=== PATIENT | male | born 1950 | race American Indian/Alaskan Native ===

== ENCOUNTER 2018-09-05 03:29 | Inpatient (IN) | payer MEDICARE ==
--- NOTE | 2018-09-05 03:43 | Emergency Department Report ---
ED Chest Pain HPI - General Stated Complaint: CHEST PAIN Time Seen by Provider: 09/05/18 03:34 - History of Present Illness Initial Comments: 67-year-old male, presents to the ED via EMS with complaint of chest pain and dizziness. 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 Patient reports associated left-sided chest pain, nonradiating. Patient states pain felt like tearing, sharp pain. Reports shortness of breath, diaphoresis. PCP: Dr Prabhjot Santiago MD Complaint: chest pain -: This morning Onset: during exertion Pain Location: left chest Pain Radiation: none Severity: moderate Quality: sharp, other (tearing) Consistency: now resolved Improves With: nothing Worsens With: nothing re: diaphoresis, dyspnea. denies: nausea, vomting - Related Data Home Medications Medication Instructions Recorded Confirmed Last Taken Unobtainable 09/05/18 09/05/18 Unknown Allergies Allergy/AdvReac Type Severity Reaction Status Date / Time No Known Allergies Allergy Unverified 09/05/18 04:18 Heart Score - HEART Score History: Moderately suspicious EKG: Non-specific Age: > 65 Risk factors: 1-2 risk factors Troponin: < normal limit HEART Score: 5 ED Review of Systems ROS: Stated complaint: CHEST PAIN Other details as noted in HPI Comment: All other systems reviewed and negative Constitutional: denies: chills, fever Respiratory: shortness of breath. denies: cough Cardiovascular: chest pain. denies: palpitations Gastrointestinal: denies: vomiting ED Past Medical Hx - Medications Home Medications: Home Medications Medication Instructions Recorded Confirmed Last Taken Type Unobtainable 09/05/18 09/05/18 Unknown History ED Physical Exam - General General appearance: alert, in no apparent distress - Head Head exam: Present: atraumatic, normocephalic - Eye Eye exam: Present: normal appearance - ENT ENT exam: Present: mucous membranes moist - Neck Neck exam: Present: normal inspection - Respiratory Respiratory exam: Present: normal lung sounds bilaterally. Absent: respiratory distress - Cardiovascular Cardiovascular Exam: Present: tachycardia, irregular rhythm - GI/Abdominal GI/Abdominal exam: Present: soft. Absent: distended, tenderness - Extremities Exam Extremities exam: Absent: pedal edema, calf tenderness - Neurological Exam Neurological exam: Present: alert, oriented X3, CN II-XII intact. Absent: motor sensory deficit - Psychiatric Psychiatric exam: Present: normal affect, normal mood - Skin Skin exam: Present: warm, dry, intact, normal color ED Course Vital Signs 09/05/18 09/05/18 09/05/18 04:04 04:30 04:44 Temperature 98.2 F Pulse Rate 125 H 77 82 Respiratory 18 18 15 Rate Blood Pressure 94/63 Blood Pressure 101/65 [Left] O2 Sat by Pulse 100 100 100 Oximetry 09/05/18 09/05/18 09/05/18 04:45 05:00 05:16 Temperature Pulse Rate 83 79 78 Respiratory 16 14 15 Rate Blood Pressure 101/65 101/65 109/71 Blood Pressure [Left] O2 Sat by Pulse 100 100 100 Oximetry 09/05/18 09/05/18 09/05/18 05:30 05:38 06:19 Temperature Pulse Rate 76 68 Respiratory 18 18 18 Rate Blood Pressure Blood Pressure 109/71 111/67 [Left] O2 Sat by Pulse 100 100 100 Oximetry 09/05/18 09/05/18 09/05/18 06:28 07:01 08:00 Temperature Pulse Rate 71 69 63 Respiratory 18 11 L 16 Rate Blood Pressure 109/71 117/63 111/65 Blood Pressure [Left] O2 Sat by Pulse 100 100 100 Oximetry 09/05/18 09/05/18 09/05/18 09:00 10:00 11:00 Temperature Pulse Rate 62 66 61 Respiratory 14 14 15 Rate Blood Pressure 109/72 99/67 103/64 Blood Pressure [Left] O2 Sat by Pulse 100 100 100 Oximetry 09/05/18 09/05/18 09/05/18 12:01 12:11 12:21 Temperature Pulse Rate 64 65 67 Respiratory 18 12 13 Rate Blood Pressure 130/85 130/85 130/85 Blood Pressure [Left] O2 Sat by Pulse 100 100 100 Oximetry 09/05/18 12:31 Temperature Pulse Rate 69 Respiratory 13 Rate Blood Pressure 130/85 Blood Pressure [Left] O2 Sat by Pulse 100 Oximetry - Reevaluation(s) Reevaluation #1: 09/05/18 05:08 Due to pt's characterization of pain as "tearing" in nature, will obtain CTA Chest. Creatnine 1.7, will administer IV fluids and get the CTA. ED Medical Decision Making - Lab Data Result diagrams: 09/05/18 03:47 09/05/18 03:47 - EKG Data -: EKG Interpreted by Me EKG shows normal: axis, intervals, QRS complexes Rate: tachycardia (rate 126) - EKG Data Interpretation: other (T wave inversions diffusely) - Radiology Data Radiology results: report reviewed, image reviewed - Differential Diagnosis afib w/ RVR, ACS, aortic dissection, PE Critical care attestation.: If time is entered above; I have spent that time in minutes in the direct care of this critically ill patient, excluding procedure time. ED Disposition Clinical Impression: Chest pain, Paroxysmal atrial fibrillation Disposition: OP ADMIT IP TO THIS HOSP Is pt being admited?: Yes Condition: Stable
--- NOTE | 2018-09-05 04:08 | XRay Report ---
PROCEDURE: XR CHEST 1V AP TECHNIQUE: A portable upright view of the chest was obtained. HISTORY: chest pain COMPARISONS: None FINDINGS: The heart size and mediastinum appear normal. The thoracic aorta is mildly tortuous. The lungs are cl ear. Pleural fluid is not seen. The skeletal structures do not show any acute changes. IMPRESSION: No acute cardiopulmonary process.. This document is electronically signed by Prabhjot Bertrand MD., September 05 2018 04:05:34 AM ET
[2018-09-05 04:14] LABS: Basophils % (Auto) 0.7 % (0.0-1.8); Eosinophils # (Auto) 0.2 K/mm3 (0.0-0.4); Eosinophils % (Auto) 2.9 % (0.0-4.3); Hematocrit 43.1 % (35.5-45.6); Hemoglobin 14.4 gm/dl (11.8-15.2); Lymphocytes # (Auto) 0.9 K/mm3 (1.2-5.4); Lymphocytes % (Auto) 16.4 % (13.4-35.0); Mean Corpuscular HGB Conc 33 % (32-34); Mean Corpuscular Volume 82 fl (84-94); Monocytes # (Auto) 0.5 K/mm3 (0.0-0.8); Monocytes % (Auto) 9.1 % (0.0-7.3); Red Blood Count 5.27 M/mm3 (3.65-5.03); Red Cell Distribution Width 16.2 % (13.2-15.2)
[2018-09-05 04:28] LABS: INR 0.89 (0.87-1.13); Partial Thromboplastin Time 28.4 Sec. (24.2-36.6)
[2018-09-05 04:34] LABS: BUN/Creatinine Ratio 15; Blood Urea Nitrogen 25 mg/dL (9-20); Calcium 8.6 mg/dL (8.4-10.2); Hemolysis Index 19
[2018-09-05] MEDS ORDERED: NACL 0.9% 1000 ML 1,000 ML IV ONE (05:08)
[2018-09-05 05:09] LABS: Platelet Count 166 K/mm3 (140-440)
--- NOTE | 2018-09-05 05:58 | Cat Scan Report ---
PROCEDURE: CT ANGIO CHEST TECHNIQUE: A CT angiogram was obtained of the chest following the intravenous injection of iodinated contrast. Rotational, sagittal, and coronal MIP reconstructions were reviewed. HISTORY: chest pain COMPARISONS: None FINDINGS: The heart size is normal. Pericardial fluid is not seen. The thoracic aorta is normal in configuratio n. There is no evidence of pulmonary embolus or congestion. The lungs are negative infiltrates or eff usions. In the upper abdomen there is a 2.8 cm peripherally calcified stone in the neck of the gallbl adder. There are no secondary signs of acute cholecystitis otherwise. The adrenal glands appear mine l. The skeletal structures are well-maintained. At the thoracic inlet the thyroid gland appears mine l. IMPRESSION: No evidence of pulmonary vessels, aortic dissection, or vascular congestion. No acute process in the chest. 2.8 cm peripherally calcified stone in the neck of the gallbladder. No secondary signs of acute john cystitis otherwise.. This document is electronically signed by Prabhjot Bertrand MD., September 05 2018 05:56:54 AM ET
[2018-09-05] MEDS ORDERED: ASPIRIN PO ONE (06:01)
--- NOTE | 2018-09-05 13:45 | Consultation ---
History of Present Illness Consult date: 09/05/18 Requesting physician: MONICO SMITH Consult reason: atrial fibrillation History of present illness: The pt is a 67 YO male with a past medical history of HTN, DM, HLP, tobacco use. He presented with complaints of palpitations, chest pain, dizziness, diaphoresis and near syncope. 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 He was noted to be in AFib with RVR following arrival. Pt denies any prior cardiac issues, including CAD, AMI, HF or arrhythmia. Pt has since converted back to SR and remains in SR on evaluation. He has no current complaints. Past History Past Medical History: diabetes, hypertension, hyperlipidemia Social history: smoking Family history: CAD (mother) Medications and Allergies Allergies Allergy/AdvReac Type Severity Reaction Status Date / Time No Known Allergies Allergy Unverified 09/05/18 04:18 Home Medications Medication Instructions Recorded Confirmed Last Taken Type Unobtainable 09/05/18 09/05/18 Unknown History Review of Systems Constitutional: no weight loss, no weight gain, no fever, no chills Ears, nose, mouth and throat: no ear pain, no nose pain, no sinus pressure, no sinus pain Cardiovascular: chest pain, palpitations, rapid/irregular heart beat, lightheade dness, high blood pressure, no orthopnea, no edema, no syncope, no paroxysmal nocturnal dyspnea, no leg edema Respiratory: no cough, no congestion, no wheezing, no pain on inspiration Gastrointestinal: no abdominal pain, no nausea, no vomiting, no diarrhea, no constipation Genitourinary Male: no dysuria, no hematuria, no flank pain, no discharge, no urinary frequency, no urinary hesitancy Musculoskeletal: no neck stiffness, no neck pain, no shooting arm pain, no arm numbness/tingling, no low back pain, no shooting leg pain Integumentary: no rash, no pruritis, no redness, no sores, no wounds Neurological: no head injury, no paralysis, no parathesias, no numbness, no tingling, no seizures, no syncope Psychiatric: no anxiety Endocrine: no cold intolerance, no heat intolerance Hematologic/Lymphatic: no easy bruising, no easy bleeding Allergic/Immunologic: no urticaria, no wheezing Physical Examination Vital Signs Temp Pulse Resp BP Pulse Ox 98.2 F 125 H 18 94/63 100 09/05/18 04:04 09/05/18 04:04 09/05/18 04:04 09/05/18 04:04 09/05/18 04:04 General appearance: no acute distress HEENT: Positive: PERRL, Normocephaly, Mucus Membranes Moist Neck: Positive: neck supple, trachea midline Cardiac: Positive: Reg Rate and Rhythm, S1/S2 Lungs: Positive: clear to auscultation Neuro: Positive: Grossly Intact Abdomen: Positive: Soft Skin: Negative: Rash, Wound Musculoskeletal: No Pain Extremities: Absent: edema Results 09/05/18 03:47 09/05/18 03:47 Coagulation 09/05/18 Range/Units 03:47 PT 12.6 (12.2-14.9) Sec. INR 0.89 (0.87-1.13) APTT 28.4 (24.2-36.6) Sec. CBC 09/05/18 Range/Units 03:47 WBC 5.5 (4.5-11.0) K/mm3 RBC 5.27 H (3.65-5.03) M/mm3 Hgb 14.4 (11.8-15.2) gm/dl Hct 43.1 (35.5-45.6) % Plt Count 166 (140-440) K/mm3 Lymph # 0.9 L (1.2-5.4) K/mm3 [place] # 0.5 (0.0-0.8) K/mm3 Eos # 0.2 (0.0-0.4) K/mm3 Baso # 0.0 (0.0-0.1) K/mm3 Comprehensive Metabolic Panel 09/05/18 Range/Units 03:47 Sodium 138 (137-145) mmol/L Potassium 3.5 L (3.6-5.0) mmol/L Chloride 101.7 (98-107) mmol/L Carbon Dioxide 19 L (22-30) mmol/L BUN 25 H (9-20) mg/dL Creatinine 1.7 H (0.8-1.5) mg/dL Glucose 107 H (75-100) mg/dL Calcium 8.6 (8.4-10.2) mg/dL - Imaging and Cardiology Echo: pending EKG: report reviewed, image reviewed EKG interpretations - Telemetry EKG Rhythm: Sinus Rhythm - EKG Sinus rhythms and dysrhythmias: sinus rhythm Assessment and Plan Initiate lopressor. No systemic AC at this time in setting of brief duration of AFib. Cont telemetry. Initiate IVF. Obtain echo and thyroid profile. Plan for lexiscan MPI stress test in AM. NPO after MN. The patient has been seen in conjunction with Dr. Cunningham who agrees with the assessment and plan of care. - Patient Problems (1) Transient atrial fibrillation Current Visit: Yes Status: Acute (2) Chest pain Current Visit: Yes Status: Acute (3) Pre-syncope Current Visit: Yes Status: Acute (4) HTN (hypertension) Current Visit: Yes Status: Chronic (5) Diabetes Current Visit: Yes Status: Chronic (6) Tobacco use Current Visit: Yes Status: Chronic (7) SAGRARIO (acute kidney injury) Current Visit: Yes Status: Acute
--- NOTE | 2018-09-05 14:04 | History and Physical Report ---
History of Present Illness Date of examination: 09/05/18 Date of admission: 09/05/18 08:05 Chief complaint: Chest tightness History of present illness: 67-year-old -[place] male with past medical history significant for hypertension, hyperlipidemia, diabetes mellitus type 2 presented to the emergency department complaining of chest tightness that wake him up earlier this morning. He feels like something is tearing apart his left chest, 10 out of 10 in intensity, associated with dizziness, shortness of breath, palpitation and diaphoresis. Patient denied cough, leg swelling, fever, chills. Patient is active tobacco smoker. REVIEW OF SYSTEMS: GENERAL: no weight change, no fatigue, no fever HEAD: no head ache EYES: no blurry vision, no acute visual loss EARS: no hearing loss, no discharge, no earache NOSE: no stuffiness, no sneezing, no discharge MOUTH, THROAT AND NECK: no bleeding gums, no sore throat, no swollen neck CARDIAC: As stated in the HPI. RESPIRATORY: no shortness of breath, no wheeze, no cough, no sputum, no hemo ptysis, no asthma GI: no decreased appetite, no nausea, no vomiting, no dysphagia, no diarrhea, no constipation, no abdominal pain URINARY: no change in frequency, no urgency, no polyuria, no hematuria, no incontinence MUSCULOSKELETAL: no muscle weakness, no pain, no joint stiffness NEUROLOGIC: no loss of sensation/numbness, no tingling, no tremors, no weakness/paralysis HEMATOLOGIC: no anemia, no easy bruising SKIN: no rashes ENDOCRINE: no heat/cold intolerance, no polyuria, no polydipsia, no thyroid problems PSYCHIATRIC: no anxiety, no depression, no suicidal ideations Past History Past Medical History: diabetes, hypertension, hyperlipidemia Past Surgical History: hernia repair, Other (right leg and shoulder surgery) Social history: smoking (one pack per day), full code. denies: alcohol abuse, prescription drug abuse, IV drug use Family history: no significant family history Medications and Allergies Allergies Allergy/AdvReac Type Severity Reaction Status Date / Time No Known Allergies Allergy Unverified 09/05/18 04:18 Home Medications Medication Instructions Recorded Confirmed Last Taken Type Unobtainable 09/05/18 09/05/18 Unknown History Exam - Physical Exam Narrative exam: Not in cardiopulmonary distress. The patient appeared well nourished and normally developed. Vital signs as documented. Head exam is unremarkable. No scleral icterus . Neck is without jugular venous distension, thyromegaly, or carotid bruits. Lungs are clear to auscultation. Cardiac exam reveals regular rate and Rhythm. Abdominal exam reveals normal bowel sounds. Extremities are nonedematous and both femoral and pedal pulses are normal. HEAD CHARRER: Alert and oriented 3. No focal weakness. - Constitutional Vitals: Temp Pulse Resp BP Pulse Ox 98.2 F 64 18 130/85 100 09/05/18 04:04 09/05/18 12:01 09/05/18 12:01 09/05/18 12:01 09/05/18 12:01 Results - Labs CBC & Chem 7: 09/05/18 03:47 09/05/18 03:47 Labs: Laboratory Last Values WBC 5.5 K/mm3 (4.5-11.0) 09/05/18 03:47 RBC 5.27 M/mm3 (3.65-5.03) H 09/05/18 03:47 Hgb 14.4 gm/dl (11.8-15.2) 09/05/18 03:47 Hct 43.1 % (35.5-45.6) 09/05/18 03:47 MCV 82 fl (84-94) L 09/05/18 03:47 MCH 27 pg (28-32) L 09/05/18 03:47 MCHC 33 % (32-34) 09/05/18 03:47 RDW 16.2 % (13.2-15.2) H 09/05/18 03:47 Plt Count 166 K/mm3 (140-440) 09/05/18 03:47 Lymph % (Auto) 16.4 % (13.4-35.0) 09/05/18 03:47 [place] % (Auto) 9.1 % (0.0-7.3) H 09/05/18 03:47 Eos % (Auto) 2.9 % (0.0-4.3) 09/05/18 03:47 Baso % (Auto) 0.7 % (0.0-1.8) 09/05/18 03:47 Lymph # 0.9 K/mm3 (1.2-5.4) L 09/05/18 03:47 [place] # 0.5 K/mm3 (0.0-0.8) 09/05/18 03:47 Eos # 0.2 K/mm3 (0.0-0.4) 09/05/18 03:47 Baso # 0.0 K/mm3 (0.0-0.1) 09/05/18 03:47 Seg Neutrophils % 70.9 % (40.0-70.0) H 09/05/18 03:47 Seg Neutrophils # 3.9 K/mm3 (1.8-7.7) 09/05/18 03:47 PT 12.6 Sec. (12.2-14.9) 09/05/18 03:47 INR 0.89 (0.87-1.13) 09/05/18 03:47 APTT 28.4 Sec. (24.2-36.6) 09/05/18 03:47 Sodium 138 mmol/L (137-145) 09/05/18 03:47 Potassium 3.5 mmol/L (3.6-5.0) L 09/05/18 03:47 Chloride 101.7 mmol/L (98-107) 09/05/18 03:47 Carbon Dioxide 19 mmol/L (22-30) L 09/05/18 03:47 Anion Gap 21 mmol/L 09/05/18 03:47 BUN 25 mg/dL (9-20) H 09/05/18 03:47 Creatinine 1.7 mg/dL (0.8-1.5) H 09/05/18 03:47 Estimated GFR 49 ml/min 09/05/18 03:47 BUN/Creatinine Ratio 15 % 09/05/18 03:47 Glucose 107 mg/dL (75-100) H 09/05/18 03:47 Calcium 8.6 mg/dL (8.4-10.2) 09/05/18 03:47 Troponin T < 0.010 ng/mL (0.00-0.029) 09/05/18 03:47 NT-Pro-B Natriuret Pep 821.4 pg/mL (0-900) 09/05/18 03:47 Assessment and Plan Assessment and plan: Chest tightness - Cardiac enzymes are negative - We'll do stress test A. fib with RVR - Patient is currently in sinus rhythm, but the morning EKG shows A. fib with RVR - Rate controlled, cardiology consulted for decision to make about anticoagulation Hypertension - Currently within normal limits DVT prophylaxis Disposition - Admitted to telemetry floor for further management and workup Advance Directives: Yes VTE prophylaxis?: Chemical Plan of care discussed with patient/family: Yes
[2018-09-05] MEDS ORDERED: TYLENOL PO PRN (14:10)
[2018-09-05] MEDS ORDERED: ALUM-MAG HYDROX-SIMETH 200-200-20MG/5ML PO PRN (14:10)
[2018-09-05] MEDS ORDERED: DULCOLAX PR PRN (14:10)
[2018-09-05] MEDS ORDERED: D50W (25GM) Syringe IV PRN (14:11)
[2018-09-05] MEDS ORDERED: NACL 0.9% 1000 ML 1,000 ML IV SCH (15:00)
[2018-09-05] MEDS: HumaLOG SUB-Q SCH ×2 (17:19→22:18)
[2018-09-05] MEDS ORDERED: LOPRESSOR PO SCH (22:00)
[2018-09-05] MEDS: HEPARIN SUB-Q SCH (22:17)
[2018-09-06] MEDS: HEPARIN SUB-Q SCH (05:42)
[2018-09-06 06:08] LABS: BUN/Creatinine Ratio 13; Blood Urea Nitrogen 18 mg/dL (9-20); Calcium 7.9 mg/dL (8.4-10.2); Hemolysis Index 8
[2018-09-06] MEDS: HumaLOG SUB-Q SCH (08:00)
[2018-09-06] MEDS ORDERED: LOPRESSOR PO SCH (10:00)
[2018-09-06] MEDS ORDERED: LEXISCAN IV ONE ×2 (10:00→10:23)
[2018-09-06 10:43] VITALS: BP 120/74
--- NOTE | 2018-09-06 11:32 | Progress Note ---
Assessment and Plan Lexiscan stress MPI this am. - Patient Problems (1) Paroxysmal atrial fibrillation Current Visit: Yes Status: Acute (2) Pre-syncope Current Visit: Yes Status: Acute (3) Chest pain Current Visit: Yes Status: Acute (4) SAGRARIO (acute kidney injury) Current Visit: Yes Status: Acute (5) HTN (hypertension) Current Visit: Yes Status: Chronic Qualifiers: Hypertension type: essential hypertension Qualified Code(s): I10 - Essential (primary) hypertension (6) Diabetes Current Visit: Yes Status: Chronic Qualifiers: Diabetes mellitus type: type 2 Subjective Date of service: 09/06/18 Principal diagnosis: PAF, Presyncope, CP, HTN, SAGRARIO, DM Interval history: No complaint. Objective Vital Signs Temp Pulse Resp BP BP Pulse Ox 09/06/18 10:24 120/74 09/06/18 10:23 107/66 09/06/18 10:22 110/72 09/06/18 10:21 109/71 09/06/18 10:20 100/69 09/06/18 10:03 127/84 09/06/18 06:10 97.7 F 54 L 18 100/57 100 09/06/18 05:43 54 L 99 09/06/18 00:45 65 99 09/06/18 00:40 98.6 F 72 18 109/67 98 09/06/18 00:17 68 09/05/18 22:17 70 117/66 09/05/18 22:00 98 09/05/18 21:15 65 98 09/05/18 21:14 98.6 F 67 20 117/66 99 09/05/18 18:40 98.1 F 68 18 115/73 09/05/18 17:53 70 09/05/18 14:37 98.1 F 83 18 155/87 95 09/05/18 12:40 63 16 130/85 100 09/05/18 12:31 69 13 130/85 100 09/05/18 12:21 67 13 130/85 100 09/05/18 12:11 65 12 130/85 100 09/05/18 12:01 64 18 130/85 100 - Physical Examination General: No Apparent Distress HEENT: Positive: EOMI, Normocephaly, Mucus Membranes Moist Neck: Positive: neck supple, trachea midline Cardiac: Positive: Reg Rate and Rhythm, S1/S2 Lungs: Positive: clear to auscultation Neuro: Positive: Grossly Intact Abdomen: Positive: Soft, Active Bowel Sounds. Negative: Tender Skin: Positive: Clear. Negative: Rash Musculoskeletal: Normal Range of Motion Extremities: Absent: edema - Labs and Meds Comprehensive Metabolic Panel 09/06/18 Range/Units 04:47 Sodium 139 (137-145) mmol/L Potassium 3.9 (3.6-5.0) mmol/L Chloride 105.4 (98-107) mmol/L Carbon Dioxide 22 (22-30) mmol/L BUN 18 (9-20) mg/dL Creatinine 1.4 (0.8-1.5) mg/dL Glucose 90 (75-100) mg/dL Calcium 7.9 L (8.4-10.2) mg/dL - Imaging and Cardiology EKG: image reviewed - Telemetry EKG Rhythm: Sinus Rhythm - EKG Sinus rhythms and dysrhythmias: sinus rhythm
--- NOTE | 2018-09-06 15:10 | Treadmill Report ---
LEXISCAN STRESS TEST REASON FOR STUDY: Chest pain. STRESS TEST PROTOCOL: The patient received 0.4 mg of Lexiscan intravenously over 10 seconds. Tc-99m tetrofosmin was subsequently injected. Baseline ECG, sinus bradycardia. T-wave abnormality. Consider anterolateral and inferior ischemia. Lexiscan ECG, no significant change from baseline. No chest pain. No arrhythmias. IMPRESSION: Nondiagnostic due to baseline ECG abnormalities. Nuclear imaging report to follow. JOB# [id number] AGO/NTS
--- NOTE | 2018-09-06 15:12 | Discharge Summary ---
Providers - Providers Date of Admission: 09/05/18 08:05 Attending physician: MONICO SMITH MD 09/05/18 12:09 Consult to Physician [CONS] Routine Comment: Consulting Provider: FEI CLIFFORD Physician Instructions: Reason For Exam: afib with RVR Primary care physician: [facility], Hospitalization Reason for admission: chest pain, A. fib with RVR Condition: Stable Pertinent studies: Echo ejection fraction of 50-55%, structure abnormality of the aortic valves, no significant aortic valve stenosis or regurgitation, no thrombus Cardiac surface was negative for acute ischemia Hospital course: 67-year-old male with past medical history significant for hypertension was presented to the emergency department complaining of chest tightness. Patient was worked up in the emergency department and he had 1 episode of A. fib with RVR, that resolved spontaneously. Patient was admitted to the floor and cardiac enzymes were negative, echo was done on stated above. Patient was evaluated by cardiology and recommended no treatment needed for afib because it is only one episode and didn't happen while he was in telemetry. Patient is currently in normal sinus rhythm and rate controlled. Patient is hemodynamically stable and cleared by cardiology for discharge with follow-up appointment in 2 weeks in the office. I have discussed the management plan with the patient is at bedside. Disposition: DC-30 STILL A PATIENT Time spent for discharge: 32 minutes - Discharge Diagnoses (1) Chest pain Status: Acute (2) Pre-syncope Status: Acute (3) Transient atrial fibrillation Status: Acute (4) HTN (hypertension) Status: Chronic Qualifiers: Hypertension type: essential hypertension Qualified Code(s): I10 - Essential (primary) hypertension (5) SAGRARIO (acute kidney injury) Status: Acute Core Measure Documentation - Palliative Care Palliative Care/ Comfort Measures: Not Applicable - Core Measures Any of the following diagnoses?: none Exam - Physical Exam Narrative exam: Not in cardiopulmonary distress. The patient appeared well nourished and normally developed. Vital signs as documented. Head exam is unremarkable. No scleral icterus . Neck is without jugular venous distension, thyromegaly, or carotid bruits. Lungs are clear to auscultation. Cardiac exam reveals regular rate and Rhythm. Abdominal exam reveals normal bowel sounds. Extremities are nonedematous and both femoral and pedal pulses are normal. PUBLICITY CONSULTANT: Alert and oriented 3. No focal weakness. - Constitutional Vitals: Temp Pulse Resp BP Pulse Ox 97.7 F 54 L 18 120/74 100 09/06/18 06:10 09/06/18 06:10 09/06/18 06:10 09/06/18 10:24 09/06/18 06:10 Plan Activity: no restrictions Weight Bearing Status: Full Weight Bearing Diet: low salt Follow up with: BRYSON ZAMORA MD [Primary Care Provider] - 7 Days Prescriptions: Metoprolol [Lopressor TAB] 12.5 mg PO BID #60 tablet
--- NOTE | 2018-09-06 19:57 | Treadmill Report ---
REASON FOR STUDY: Presyncope and chest pain. IMAGING PROTOCOL: The patient received Tc-99m tetrofosmin for stress and rest imaging. Imaging for all procedures etc. IMAGING PROTOCOL: The patient received 4 mCi of Thallium 201 for rest imaging and 26 mCi of technetium-99 Tetrofosmin for stress imaging. Imaging for all procedures was completed 30-90 minutes following the initial injection of Technetium 99m Tetrofosmin. SPECT imaging in the 180 degree arc was performed in the right anterior oblique projection. Computerized reconstruction of the images was performed for analysis. NUCLEAR IMAGING RESULTS: Normal left ventricular cavity size with no change from stress to rest. Distribution of radionuclide within the left ventricle revealed normal myocardial photon uptake with stress and rest imaging. Gated SPECT imaging revealed normal global LV systolic function with no significant wall motion abnormalities. The calculated left ventricular ejection fraction is 52%. IMPRESSION: Normal stress and rest myocardial perfusion imaging. Normal global LV systolic function with no significant wall motion abnormalities. EF 52%. No evidence of significant stress-induced ischemia or prior infarction. [facility]# [id number] NIKOLE/CAMRON
== END 2018-09-06 15:50 | disposition home or self-care (01) | DRG 308 ==
LOC: ED 03:29 → 4A 08:05
PROVIDERS: ADMIT Internal Medicine; ATTEND Internal Medicine
DX: I48.0 Paroxysmal atrial fibrillation (principal); N17.0 Acute kidney failure with tubular necrosis; R07.9 Chest pain, unspecified; I10 Essential (primary) hypertension; E11.9 Type 2 diabetes mellitus without complications; R55 Syncope and collapse; E78.5 Hyperlipidemia, unspecified; F17.210 Nicotine dependence, cigarettes, uncomplicated; Z82.49 Family history of ischemic heart disease and other diseases of the circulatory system
CPT/HCPCS: 36415; 71045; 71275; 78452; 80048; 82962; 83036; 83880; 84439; 84443; 84484; 85025; 85610; 85730; 93005; 93010; 93017; 93306; 96360; 96361; G0378; A9502; J1644; J2785; J7030; Q9967